=== PATIENT | male | born 1960 | race Caucasian/White ===

== ENCOUNTER 2018-09-24 05:21 | Day surgery (SDC) | payer MEDICARE ==
[~2018-09-24] VITALS: Ht 185.4 cm; Wt 79.3 kg
[2018-09-24 07:10] VITALS: BP 127/81; PULSE 80; TEMP 98.1
[2018-09-24] MEDS ORDERED: GLUCOPHAGE1000 MG PO (07:13)
[2018-09-24] MEDS ORDERED: ZOLOFT 50MG50 MG PO (07:14)
[2018-09-24] MEDS ORDERED: NEURONTIN300 MG/CAP PO (07:14)
[2018-09-24] MEDS ORDERED: LIPITOR 10MG10 MG PO (07:15)
[2018-09-24] MEDS ORDERED: FLEXERIL 1010 MG/TAB PO ×2 (07:15→07:17)
[2018-09-24] MEDS ORDERED: AMARYL 2MG T2 MG/TAB PO (07:19)
[2018-09-24] MEDS ORDERED: NOVLOG SQ (07:22)
[2018-09-24 08:32] VITALS: BP 134/63; PULSE 65
--- NOTE | 2018-09-24 08:32 | NUR ---
Patient returns to room 8 per cart from surgery and is awake and alert. Temp 97.5 and room air 94%. Incision on the left side of back with wound edges well approximated and covered with hyde set dressing. Denies pain or nausea. IV fluids infusing #18g RH. Siderails up x2 and call light in reach. Given water and allowed to sleep. Abdomen soft and flat.
[2018-09-24 08:47] VITALS: BP 118/84; PULSE 63
--- NOTE | 2018-09-24 08:47 | NUR ---
Drinking water and resting without complaints of pain or nausea.
[2018-09-24] MEDS ORDERED: NORCO 325 MG-51 TAB PO (08:52)
[2018-09-24 09:02] VITALS: BP 118/71; PULSE 66
--- NOTE | 2018-09-24 09:02 | NUR ---
Room air sats 92%. Eating muffin and drinking water. Continues to deny incisional pain or nausea.
[2018-09-24 09:17] VITALS: BP 131/71; PULSE 73
--- NOTE | 2018-09-24 09:17 | NUR ---
Sipping on coffee and eating muffin.
--- NOTE | 2018-09-24 09:30 | NUR ---
IV discontinued and patient is dressing self. Steady on feet.
--- NOTE | 2018-09-24 09:45 | NUR ---
Given dismissal instructions for wound cares and post colonoscopy cares. Patient repeats back dismissal instructions.
--- NOTE | 2018-09-24 09:49 | NUR ---
Patient dismissed to home per private vehicle driven by son with instructions in hand. Taken to the front door per wheelchair and assisted into car by this RN.
== END 2018-09-24 09:49 | disposition home or self-care (01) ==
LOC: SDCO 05:21
DX: Z12.11 Encounter for screening for malignant neoplasm of colon (principal); D12.0 Benign neoplasm of cecum; D12.5 Benign neoplasm of sigmoid colon; D17.79 Benign lipomatous neoplasm of other sites; Z87.891 Personal history of nicotine dependence; E11.42 Type 2 diabetes mellitus with diabetic polyneuropathy; Z79.84 Long term (current) use of oral hypoglycemic drugs; F32.9 Major depressive disorder, single episode, unspecified; E78.5 Hyperlipidemia, unspecified; Z79.899 Other long term (current) drug therapy; Z83.3 Family history of diabetes mellitus
CPT/HCPCS: J2704; J3010; J7030

== ENCOUNTER → 2024-01-27 | Outpatient (CLI) | payer MEDICARE ==
[~2024-01-27] MED LIST: AMARYL 2MG T2 MG/TAB PO; FLEXERIL 1010 MG/TAB PO; GLUCOPHAGE1000 MG PO; LIPITOR 10MG10 MG PO; NEURONTIN300 MG/CAP PO; NORCO 325 MG-51 TAB PO; NOVLOG SQ; ZOLOFT 50MG50 MG PO
== END ==
LOC: COL.RAD 12:27
DX: Z12.2 Encounter for screening for malignant neoplasm of respiratory organs (principal); Z87.891 Personal history of nicotine dependence